=== PATIENT | male | born 1975 | race Two or more races ===

== ENCOUNTER 2019-10-26 01:12 | Emergency (ER) | payer SELFPAY ==
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
--- NOTE | 2019-10-26 02:08 | CR ---
Indication: Injury and pain Technique: Left ankle 3 views. Comparison: None Findings: Bones: There is a coronal fracture of the posterior malleolus without significant displacement. Small loose body noted at the medial aspect of the ankle. Ossifications are seen near the fibular tip, however these are consistent with ossicles or old avulsion fragments. Joint spaces: No dislocation. Small ankle effusion. Soft tissues: Anterolateral soft tissue swelling. Impression: 1. Posterior malleolar fracture without significant displacement. Dictated by Anton Maynard MD @ Oct 26 2019 2:05AM Signed by Dr. Anton Maynard @ Oct 26 2019 2:07AM
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
[2019-10-26] MEDS ORDERED: Bacitracin Oint 1 GM U/D Packet ONE (02:15)
[2019-10-26] MEDS ORDERED: Diphtheria,Pertussis(Acell),Tetanus Vaccine 0.5 ML Syringe IM ONE (02:15)
[2019-10-26] MEDS ORDERED: Bacitracin Oint 28.35 GM Tube TOP SCH (06:00)
== END 2019-10-26 03:15 | disposition home or self-care (01) ==
LOC: MW.ED 01:12
DX: S01.21XA Laceration without foreign body of nose, initial encounter (principal); S49.92XA Unspecified injury of left shoulder and upper arm, initial encounter; S99.912A Unspecified injury of left ankle, initial encounter; Z23 Encounter for immunization; V49.49XA Driver injured in collision with other motor vehicles in traffic accident, initial encounter
CPT/HCPCS: 12011; 29515; 73020-26-LT; 73020-LT; 73600-26-LT; 73600-LT; 90715; 99283; 99283-25; G0008